=== PATIENT | female | born 1960 | race Hispanic/Latino ===

== ENCOUNTER 2017-01-11 03:05 | Inpatient (IN) | payer OTHER ==
[~2017-01-11] VITALS: Ht 160 cm; Wt 90.7 kg
[~2017-01-11 03:05] MED LIST: AMLODIPINE BESY10 M1 PO; CALCIUM; FERROUS SULFAT325 M3 PO; METHOTREXATE2.5 M2 PO; XELJANZ5 M1 PO
--- NOTE | 2017-01-11 10:18 | Operative Report ---
Operative/Inv Procedure Report Surgery Date: 01/11/17 Name of Procedure: Right total knee arthroplasty Pre-Operative Diagnosis: Right knee primary osteoarthritis/history of rheumatoid arthritis Post-Operative Diagnosis: Same with final pathology pending Estimated Blood Loss: less than 50ml Surgeon/Stock Order Lister: AMAURI CARO,Ray CANALES Anesthesia: block Implants: Chi triathlon total knee system-size 4 femur, size 4 tibia, 13 mm cruciate retaining polyethylene, 29 patella Drains: None Specimens: Femoral, tibial, patellar bone, synovium Microbiology: Urine Tourniquet: 64 minutes Complications: None Condition: Stable Operative Indication: Patient is a 56-year-old woman with a history of rheumatoid arthritis but radiographic findings consistent with severe end-stage osteoarthritis. She's been treated with normal conservative measures was only short-term relief. She underwent left total knee arthroplasty in 2011. Her symptoms on her right side continued to progress and have interfere with normal activities of daily living. She wished to proceed with total knee arthroplasty after risks, benefits and expectations were discussed which included but were not limited to persistent knee pain, need for subsequent surgery, infection, DVT, injury to blood vessel or nerve, anesthesia risks Operative/Procedure Note Note: Patient was brought to the operating room and transferred to the operating table. Once under appropriate anesthesia the right lower extremity was prepped and draped in standard fashion. Preoperative IV antibiotics were given prophylactically. Leg was elevated exsanguinated tourniquet was inflated. An anterior incision was made for anticipated medial parapatellar approach. The incision was taken down sharply to the retinaculum. A medial retinacular approach with extension into the quadriceps tendon was used to enter the knee joint. There was a medium-sized knee effusion of clear fluid. This was evacuated. Dissection was taken around the medial corner of the tibia for balancing purposes. There was severe end-stage degenerative changes of all 3 compartments with eburnated bone medially and patellofemoral compartment. Remnants of medial lateral meniscal tissues were excised. Remnants of the ACL were excised which were just some fibers. Retractors were placed. Drill was used to enter the intramedullary canal for the intramedullary guide of the femur. Distal femoral cut was made with a 6 valgus cut. Femur was incised was size 4. Size 4 cutting block was pinned in place and the cuts were made while protecting the soft tissues. I then sublux the tibia forward using the PCL retractor and excised remaining posterior horn of medial and lateral meniscal tissues. PCL was recessed. Osteophytes were excised and then the external tibial alignment guide was used on the tibia. The cutting guide was pinned in position for a neutral cut from medial to lateral and reproducing patient's posterior slow-paced on intraoperative findings and preoperative templating and x-rays. Cut was made while protecting all soft tissues from medial to lateral and posterior. I then sized the tibia to a size 4 there was a very large anterior medial osteophyte on the tibia. Also there was very large osteophytes posteriorly which needed to be removed. This was done with a curved osteotome followed by a large curved curet. I was satisfied with the decompression medially and posteriorly and posterior laterally. I then use a size 4 tibia with a size 4 femur and a trial reduction. I was satisfied with the soft tissue balancing from medial to lateral but patient is a larger polyethylene ultimately. I then measured the patella and remove the appropriate thickness and replaced with a size 29 patella. 3 lug holes were drilled. The knee was taken through range of motion. Slight lateral patellar tilt after 90 of flexion rate this would be addressed later on the case. I then marked my rotation of tibia drilled my 2 lug holes for the femur and then removed all trial components and instrumentation from the knee. I finished preparation of the tibia with the tibial punch. Because of the sclerotic bone in the medial tibial plateau I used a saw to start my wedge preparation and then finished with my appropriate sized wedge for the tibia. I then removed all his rotation. This was followed by copious irrigation the knee. I used the anterior chamfer bone to plug the distal femur to minimize postoperative hemarthrosis and swelling. Cement was being mixed on the back table. Once it was ready was applied to the dry clean bony surfaces of the tibia. The size 4 tibia was impacted in place and excess cement was removed with a curet. Cement was applied to the dry clean bony surfaces of the femur. The size 4 femur was impacted in place and excess cement was removed with curettes. Cement was applied to the dry clean bony surfaces of the patella. The size 29 patella was impacted in place and excess cement was removed with a knife. The knee was taken out to full extension with a 11 mm polyethylene and during this time I injected pericapsular. Particular areas with cocktail continued containing ropivacaine epinephrine and Toradol for postoperative pain and inflammation management. Once the cement hardened I took the knee through range of motion. Small pieces of excess cement removed with osteotome. Trial polyethylene was removed and a 13 mm trial was dried I was satisfied with the 13 mm with full extension excellent mid flexion stability and full flexion to gravity. I removed the trial component. This was followed by copious irrigation the tibial tray and then the definitive size 13 mm cruciate retaining polyethylene was inserted into place and the locking mechanism was confirmed. The knee was taken through range of motion. I was satisfied with the stability in all planes. Tourniquet was deflated at 64 minutes I then assessed the patellofemoral tracking. Patient did require a lateral patellar release to maximize tracking after flexion of greater than 90. Hemostasis was obtained. Copious irrigation followed every level of closure. The retinaculum and medial extension the quadriceps was repaired with interrupted #1 Vicryl sutures. Subcutaneous tissues closed in 2 layers with 2-0 Vicryl and skin was closed running 3-0 Vicryl suture with the knee in flexion. Appropriate just his were applied and patient was awakened and taken the recovery room in good condition. No intraoperative complications. Blood loss was less than 50 mL Discharge Disposition: PACU
[2017-01-11 12:20] VITALS: BP 124/78
[2017-01-11 14:04] VITALS: BP 100/80
--- NOTE | 2017-01-11 14:58 | PN- Orthopedic ---
Subjective Subjective: Postop check, pod #0 s/p R TKR Pt tolerated the procedure well and was transferred to the [facility] floor in stable condition. She c/o nausea after transfer, which was not relieved by zofran. Timing seems to be related to morphine administration. She is awaiting phenergan. No sips as of yet. She is sitting in the chair. Cifuentes catheter remains in place. Otherwise denies headache, dizziness, chest pain, shortness of breath. Objective Vital Signs and I&Os Vital Signs Date Time Temp Pulse Resp B/P B/P Pulse O2 O2 Flow FiO2 Mean Ox Delivery Rate 01/11 1404 97.0 57 18 100/80 93 Room Air 01/11 1220 97.4 63 18 124/78 96 Room Air Intake & Output 01/11 1600 01/11 0800 01/11 0000 01/10 1600 01/10 0800 / 0000 Intake Total Output Total 250 Balance -250 Output, Urine 250 Physical Exam: Gen.: Patient is resting, but arousable. She does appear fatigued. Cardiac: Regular Pulmonary: Lungs are clear bilaterally. Extremities: The right lower extremity dressing is clean, dry, and intact. There is an On-Q catheter in place in the right groin. Lower extremity sensation is mostly intact except for some numbness at the plantar aspect of the right foot. Strength of plantar flexion is 3 out of 5 and dorsiflexion is 4 out of 5 on the right. No significant Tenderness or lower extremity edema appreciated. Assessment/Plan Assessment/Plan Patient is a 56-year-old female with a history of hypertension and rheumatoid arthritis, who is now postoperative day #0 status post right total knee arthroplasty. -Advance diet as tolerated. Continue Zofran as needed for nausea. Will give Phenergan if needed as well. -Continue IV fluids for now. -Keep Cifuentes catheter in place overnight for I's and O's. -Will change pain meds to dilaudid instead of morphine. Will leave percocet for now. On-Q pain catheter is in place for additional relief. -Coumadin for DVT prophylaxis. Follow up INR in the morning. Titrate Coumadin dose to keep INR 2-3. -PT consult for mobilization. Weight-bear as tolerated. -IV antibiotics x 24 hours for prophylaxis. -F/u cbc, lytes, and INR in AM. -Plan for dressing change on postoperative day #2. -Home meds have been resumed. Core Measures/Miscellaneous Cifuentes Catheter Date In: 01/11/17 Still Needed? Yes Venous Thromboembolism VTE Risk Factors: Age > 40, Surgery VTE Contraindications: No Contraindications VTE Diagnosis: No Beta Brandon Is Beta Brandon a Home Med? No Antibiotics Is Patient on Antibiotics? Yes If Yes: prophylaxis
--- NOTE | 2017-01-11 16:09 | Surgical Discharge Summary ---
Visit Information Visit Dates Admission Date: 01/11/17 Discharge Date: 01/13/17 History of Present Illness Chief Complaint: R knee DJD/osteoarthritis Surgical History Pertinent Surgical History: knee replacement Psychosocial History Who Do You Live With? Daughter What is Your Primary Language? Nepali Review of Systems: see H&P Hospital Course Course Attending Physician: AMAURI CARO,ALLY Primary Care Physician: DARIAN MCCOY Hospital Course: Patient was admitted to [facility] for elective surgery on 01/11/2017 and underwent right total knee replacement. The patient tolerated the procedure well , without complications. The postoperative course remained uneventful. Pain was well controlled with oral pain medication,pt tolerated a regular diet, and was voiding without difficulty. The patient was evaluated by physical therapy during admission, was deemed stable from a medical standpoint, and was discharged. Allergies: Uncoded Allergies: SURGICAL GLUE (Severe, SWELLING/ RASH 12/31/16) Significant Procedures: 01/11/2017 right total knee replacement Disposition Summary Disposition Principal Diagnosis: R knee DJD/osteoarthritis, s/p R TKA Additional Diagnosis: Hypertension, rheumatoid arthritis Discharge Disposition: home health services Discharge Instructions General Discharge Information Code Status: Full Code Patient's Diet: Regular Patient's Activity: You may ambulate as desired with rolling walker. Avoid strenuous activity and heavy lifting, pushing, or pulling. No driving while using narcotics. Follow-Up Instructions/Appts: Avoid bathing, but you may shower as desired. Dry dressing change once daily. Please check INR on postoperative day #1 and then twice weekly thereafter. Please titrate Coumadin dose to keep INR 2-3. Please follow-up with Ally Srinivasan MD at 2 weeks postop for staple removal. Please report any of the following symptoms to M[facility]: Fever greater than 101, redness around the incision, drainage from the wound, chest pain, shortness of breath. Medications at Discharge Discharge Medications: Continue taking these medications: Tofacitinib Citrate (Xeljanz) 5 MG TABLET 11 Milligram ORAL DAILY Comments: NOT GIVEN IN HOSPITAL Methotrexate (Methotrexate) 2.5 MG TABLET 6 Tablet ORAL Once a Week Instructions: EVERY WEDNESDAY Comments: NOT GIVEN IN HOSPITAL Amlodipine Besylate (Amlodipine Besylate) 10 MG TABLET 1 Tablet ORAL DAILY Comments: Last Taken:01/13/17 Time:9:30 AM Ferrous Sulfate (Ferrous Sulfate) 325 MG (65 MG IRON) TABLET 1 Tablet ORAL DAILY Comments: Last Taken:01/13/17 Time:9:30 AM [CALCIUM] 1,500 MG DAILY Comments: NOT GIVEN IN HOSPITAL Start taking the following new medications: Oxycodone HCl/Acetaminophen (Percocet 5-325 MG Tablet) 5 MG-325 MG TABLET 1-2 Tablet ORAL Q4-6H as needed for PAIN Qty = 36 No Refills Comments: Last Taken:01/13/17 Time:10:20 AM Warfarin Sodium (Coumadin) 5 MG TABLET 1 Tablet ORAL COUMADIN AT 5PM Days = 30 No Refills Instructions: TITRATE DOSE TO KEEP INR 2-3. Comments: Last Taken:01/12/17 Time:4:30 PM Docusate Sodium (Docusate Sodium) 100 MG CAPSULE 1 Capsule ORAL TWICE DAILY Days = 7 No Refills Comments: Last Taken:01/13/17 Time:9:30 AM [INR] 1 Test Unit OTHER DAILY No Refills Instructions: INR: DAILY DRAW UNTIL STABLE, THEN 2-3 TIMES PER WEEK COUMADIN TO BE DOSED DAILY BASED ON INR [facility] INR 2-[address] SRINIVASAN
[2017-01-11] MEDS ORDERED: DOCUSATE SODIU100 M3 PO (16:13)
[2017-01-11] MEDS ORDERED: PERCOCET 5-3251 EACH PO (16:13)
[2017-01-11] MEDS ORDERED: COUMADIN5 M2 PO (16:13)
--- NOTE | 2017-01-11 16:16 | Patient Discharge Instructions ---
Discharge Instructions General Discharge Information You were seen/treated for: Right knee DJD/osteoarthritis You had these procedures: Right total knee arthroplasty on 01/11/2017 Watch for these problems: Fever greater than 101, redness or drainage from the wound, chest pain, shortness of breath Call Surgeon to remove: J Luis (2 weeks postop) Do not soak the wound: Yes No bath, but you may shower: Yes Other wound care: Avoid bathing, but you may shower as desired. Dry dressing change once daily. Please check INR on postoperative day #1 and then twice weekly thereafter. Please titrate Coumadin dose to keep INR 2-3. Special Instructions: Please check INR on postoperative day #1 and then twice weekly thereafter. Please titrate Coumadin dose to keep INR 2-3. Diet Continue normal diet: Yes Recommended Diet: Regular Activity Full Activity/No Limits: No Activity Self Limited: Yes Pounds, do NOT lift more than: 5 Activity Limited to: Weight bear as tolerated Other activity limits: You may ambulate as desired with rolling walker. Avoid strenuous activity and heavy lifting, pushing, or pulling. No driving while using narcotics. Acute Coronary Syndrome Inclusion Criteria At DC or during hospital stay patient has or had the following: ACS DIAGNOSIS No Discharge Core Measures Meds if any: Prescribed or Continued at Discharge Meds if any: NOT Prescribed or Continued at Discharge Congestive Heart Failure Inclusion Criteria At DC or during hospital stay patient has or had the following: CHF DIAGNOSIS No Discharge Core Measures Meds if any: Prescribed or Continued at Discharge Meds if any: NOT Prescribed or Continued at Discharge Cerebrovascular accident Inclusion Criteria At DC or during hospital stay patient has or had the following: CVA/TIA Diagnosis No Discharge Core Measures Meds if any: Prescribed or Continued at Discharge Meds if any: NOT Prescribed or Continued at Discharge Venous thromboembolism Inclusion Criteria VTE Diagnosis No VTE Type NONE VTE Confirmed by (Test) NONE Discharge Core Measures - Per Current guidelines, there needs to be overlap - treatment for the first 5 days of Warfarin therapy. - If discharged on Warfarin prior to 5 days of - overlap therapy, the patient will need to be - assessed for post discharge needs including - *Post discharge parental anticoagulation - *Warfarin and/or parental anticoagulation education - *Follow up date to check INR post discharge At least 5 days overlap therapy as Inpatient No Meds if any: Prescribed or Continued at Discharge Note: Overlap Therapy is Warfarin and Anticoagulant Meds if any: NOT Prescribed or Continued at Discharge
[2017-01-11 18:50] VITALS: BP 110/68
[2017-01-11 22:32] VITALS: BP 108/60
[2017-01-12 02:06] VITALS: BP 100/50
--- NOTE | 2017-01-12 06:25 | NUR ---
PT MELGOZA REMOVED POD#1 WITHOUT DIFFICULTY.
[2017-01-12 06:55] VITALS: BP 106/66
[2017-01-12 08:05] LABS: ABSOLUTE BASOPHIL COUNT 0 /CUMM (0.0-0.2); ABSOLUTE EOSINOPHIL COUNT 0 /CUMM (0.0-0.7); ABSOLUTE GRANULOCYTE CT 9.4 /CUMM (1.4-6.5); ABSOLUTE LYMPH COUNT 1.3 /CUMM (1.2-3.4); ABSOLUTE MONOCYTE COUNT 0.8 /CUMM (0.10-0.60); BASOPHIL % 0.1 % (0.0-2.0); EOSINOPHIL % 0.1 % (0-5); HEMATOCRIT 31.2 % (37-47); MEAN CORPUSCULAR HGB 29.7 PG (27.0-31.0); MEAN CORPUSCULAR HGB CONC 33.5 G/DL (33.0-37.0); MEAN CORPUSCULAR VOLUME 88.6 FL (81.0-99.0); MEAN PLATELET VOLUME 7.9 FL (7.4-10.4); PLATELET COUNT 277 /CUMM (130-400); RBC DISTRIBUTION WIDTH 14.2 % (11.5-14.5); RED BLOOD CELL CT 3.52 /CUMM (4.20-5.40); WHITE BLOOD CELL COUNT 11.5 /CUMM (4.8-10.8)
--- NOTE | 2017-01-12 08:18 | PN- Orthopedic ---
See Addendum Subjective Subjective: The patient is seen this morning postoperatively day 1. She reports that her pain is under adequate control and is eager to reverse physical therapy this morning. She has no other complaints. Objective Vital Signs and I&Os Vital Signs Date Time Temp Pulse Resp B/P B/P Pulse O2 O2 Flow FiO2 Mean Ox Delivery Rate 01/12 0655 98.1 65 20 106/66 98 Room Air 01/12 0206 97.5 59 20 100/50 91 Room Air 01/11 2232 97.6 61 18 108/60 95 01/11 1850 97.7 64 20 110/68 95 01/11 1404 97.0 57 18 100/80 93 Room Air 01/11 1220 97.4 63 18 124/78 96 Room Air Intake & Output 01/12 1600 01/12 0000 01/11 1600 01/11 0000 Intake Total 720 840 700 Output Total 850 400 Balance -130 840 300 Intake, IV 600 600 200 Intake, Oral 120 240 500 Output, Urine 850 400 Patient 200 lb Weight Physical Exam: Gen.: Alert and obvious distress Skin: Warm and dry Extremities: Bilateral excision was warm without calf tenderness or significant edema. Gross motor and sensory are intact. Right knee dressing was clean, dry, and intact. There is On-Q pain pump in place. Assessment/Plan Assessment/Plan Assessment: 56-year-old female status post right total knee arthroplasty postoperative day 1. The patient is progressing as expected and her pain is under control. Plan: Out of bed with physical therapy Follow-up morning laboratory studies and dose Coumadin for an INR between 2 and 3 Continue current pain regiment including On-Q pain pump GI and DVT prophylaxis Incentive spirometry DC Cifuentes catheter and Hep-Lock IV fluids First surgical dressing change tomorrow Core Measures/Miscellaneous Cifuentes Catheter Date In: 01/11/17 Venous Thromboembolism VTE Risk Factors: Age > 40, Surgery VTE Contraindications: No Contraindications VTE Diagnosis: No Beta Brandon Is Beta Brandon a Home Med? No Antibiotics Is Patient on Antibiotics? No
[2017-01-12 08:32] LABS: PT 11.2 SEC (9.4-12.5)
[2017-01-12 08:51] LABS: GRANULOCYTE % 81.7 % (42.2-75.2)
[2017-01-12 09:14] VITALS: BP 130/70
[2017-01-12 14:04] VITALS: BP 122/70
[2017-01-12 18:18] VITALS: BP 118/62
--- NOTE | 2017-01-12 20:37 | NUR ---
BEDSIDE REPORT GIVEN. PT WAS SLEEPING. CURRENTLY A&OX3, RA, IV #20 RFA 01/11/17 FLUIDS D/C. ALPS, ON Q PUMP ABDUCTOR CANAL 5CM 14 ML, ICE ON, DSG CDI, OOB RW X1, CALL LIGHT WITHIN REACH.
[2017-01-12 21:59] VITALS: BP 118/60
[2017-01-13 06:28] VITALS: BP 100/62
--- NOTE | 2017-01-13 07:23 | PN- Orthopedic ---
See Addendum Subjective Subjective: R KNEE PAIN, HELPED WITH PAIN MEDS. NO N/V/CP/SOB. SOME OOB. WANTS TO DC HOME TODAY Objective Vital Signs and I&Os Vital Signs Date Time Temp Pulse Resp B/P B/P Pulse O2 O2 Flow FiO2 Mean Ox Delivery Rate 01/14 628 99.3 60 20 100/62 95 Room Air 01/12 2159 98.3 78 20 118/60 98 01/12 1818 98.5 68 118/62 01/12 1404 97.9 79 20 122/70 97 Room Air 01/12 0914 98.0 66 20 130/70 94 Room Air 01/12 0905 88 112/70 Intake & Output 01/13 0000 01/12 1600 01/12 0000 01/11 1600 Intake Total 700 120 700 720 840 700 Output Total 800 300 300 850 400 Balance -100 -180 400 -130 840 300 Intake, IV 100 600 600 200 Intake, Oral 700 120 600 120 240 500 Output, Urine 800 300 300 850 400 Patient 200 lb Weight Physical Exam: GEN: NAD CARD: S1S2 RRR PULM: CTAB ABD: SOFT NT EXT: RLE DRESSED, + DORSI/PLANTAR FLEXION, GROSS SENSATE INTACT, +PT,DP INCISION: DRIED BLOOD ON STERIS, SOME MILD ECCHYMOSES, NO DRAINAGE, NO ACTIVE BLEEDING, NO ERYTHEMA Assessment/Plan Assessment/Plan POD2 SP R TKR, STABLE. PLAN: OOB, PT, WBAT COUM PER INR PO PAIN MEDS PRN REG DIET DC PLANNING Core Measures/Miscellaneous Cifuentes Catheter Date In: 01/11/17 Venous Thromboembolism VTE Risk Factors: Age > 40, Surgery VTE Contraindications: No Contraindications VTE Diagnosis: No Beta Brandon Is Beta Brandon a Home Med? No Antibiotics Is Patient on Antibiotics? No
[2017-01-13 08:30] LABS: PT 13.5 SEC (9.4-12.5)
[2017-01-13 09:34] VITALS: BP 132/74
[2017-01-13] MEDS ORDERED: PERCOCET 5-3251 EACH PO (09:39)
[2017-01-13] MEDS ORDERED: [UNRECOGNIZED DRUG - REMARK] OTHER (09:48)
--- NOTE | 2017-01-13 11:41 | NUR ---
0700- ON Q PUMP REMOVED BY NIGHT RN. NO LONGER IN PLACE.
--- NOTE | 2017-01-13 13:48 | RADIOLOGY REPORT ---
EXAMINATION: XR KNEE, RIGHT CLINICAL INFORMATION: Status post total right knee arthroplasty. COMPARISON: Contralateral left knee films from 01/13/2012. TECHNIQUE: Two views of the right knee. FINDINGS: The patient is status post total right knee arthroplasty. Hardware is intact. There is a 0.2 cm lucency seen underlying the anterior proximal femoral prosthetic component with a sclerotic margin. Prosthetic components are otherwise well seated and unremarkable. There is a large suprapatellar knee joint effusion. No h[place] bone fracture is seen. IMPRESSION: 1. Large suprapatellar knee joint effusion. 2. Lucency underlying the anterior proximal femoral prosthetic component is seen with sclerotic margins. Findings are nonspecific but may be related to loosening or foreign body reaction. Clinical correlation requested.
== END 2017-01-13 13:10 | disposition home health service (06) | DRG 470 ==
LOC: 2NA 03:05 → SDA 03:05 → ENRESERV 10:26 → 2NA 12:13 → ENPENDDIS 01-13 12:08 → 2NA 01-13 13:10
PROVIDERS: Physician Assistant Surgical; ADMIT Orthopaedic Surgery
PROC: 0SRC0J9 Replacement of Right Knee Joint with Synthetic Substitute, Cemented, Open Approach (ICD-10-PCS; principal; 2017-01-11)
DX: M17.11 Unilateral primary osteoarthritis, right knee (principal); M06.9 Rheumatoid arthritis, unspecified; I10 Essential (primary) hypertension; E66.9 Obesity, unspecified; Z68.35 Body mass index [BMI] 35.0-35.9, adult
CPT/HCPCS: 2NASP; 36415; 73560-RT; 82436; 87086; 88305; 97110-GO; 97116-GO; 97161-GP; 97530-GO; C1713; J0131; J0171; J1170; J1885; J2405; J2550; J2795; J3370; J7040